=== PATIENT | male | born 1980 | race Caucasian/White ===

== ENCOUNTER 2025-06-23 22:39 | Emergency (ER) | payer BC, SELFPAY ==
[2025-06-23 22:50] VITALS: BP 167/93
[2025-06-23 23:09] LABS: Hematocrit 39.8 % (39.0-52.0); Hemoglobin 13.2 g/dL (13.0-18.0); Mean Corp Hgb Conc. 33.2 g/dL (33.0-37.0); Mean Corpuscular Volume 91.3 fL (80.0-94.0); Nucleated Red Blood Cells % 0 % (-); Platelet Count 293 10^3/uL (130-400); Red Cell Dist. Width 12.0 % (11.5-14.5)
[2025-06-23 23:12] LABS: INR 0.95; PT 13.0 Sec (11.4-14.6)
[2025-06-23 23:13] LABS: APTT 27.4 Sec (23.4-35.0)
[2025-06-23 23:23] LABS: ALT (SGPT) 33 U/L (0-50); AST (SGOT) 31 U/L (17-59); Albumin 4.3 g/dl (3.5-5.0); Alkaline Phosphatase 47 U/L (38-126); Blood Urea Nitrogen 19 mg/dl (9-20); Calcium 9.3 mg/dl (8.4-10.2); Carbon Dioxide 26 mmol/L (22-30); Chloride 109 mmol/L (98-107); Glucose 105 mg/dl (70-99); Potassium 4.3 mmol/L (3.5-5.1); Sodium 142 mmol/L (135-145); Total Protein 6.7 g/dl (6.3-8.2); eGFR > 60.00
[2025-06-23 23:27] LABS: Troponin I < 0.012 ng/ml
[2025-06-24 00:09] VITALS: BP 162/66
[2025-06-24 00:15] VITALS: BMI 29.2
[2025-06-24 00:20] VITALS: BP 162/66
[2025-06-24 01:00] VITALS: BP 138/69
[2025-06-24 02:00] VITALS: BP 139/71
--- NOTE | 2025-06-24 02:30 | DOWNTIME ---
There was a [employer] Downtime on 06/24/2025 from 0100 to 06/24/2025 at 0215. Downtime documentation of patient's care, including medication administrations, has been reconciled in the electronic record per guidelines. Refer to the
patient's paper chart under the miscellaneous tab to see printed paper medication records and downtime forms.
[2025-06-24 03:12] VITALS: BP 137/71
--- NOTE | 2025-06-24 03:53 | ED.GENMED ---
History of Present Illness
General
Chief Complaint: Chest Pain
Source: patient
Exam Limitations: none
Time Seen by Provider: 06/24/25 03:00
Nursing documentation reviewed up to this point in time: agreed with
History of Present Illness
History of Present Illness:
Note:
CHIEF COMPLAINT(S)
Left shoulder pain radiating to the chest.
HISTORY OF PRESENT ILLNESS
The patient is a 44-year-old male with pmh of bipolar disorder takes no medications who presents with left shoulder pain radiating to the center of the chest, which started two days ago. He does not recall any specific event or injury that initiated
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 He describes the pain as persisting and mentions it sometimes wakes him up at night. The pain has been partially alleviated by taking
Xanax and Advil. The patient reports experiencing slight shortness of breath with the discomfort. He denies any family history of heart disease and reports that he smokes tobacco products but not daily. Upon physical exertion or movement of the
shoulder, he feels no notable increase in pain. A prior test revealed undetectable troponin levels, suggesting no acute cardiac injury. The patient is generally healthy and reports visiting a family doctor annually.
SOCIAL DETERMINANTS AFFECTING HEALTH
The patient reports smoking tobacco products but not on a daily basis.
REVIEW OF SYSTEMS
- Cardiovascular: Complains of left shoulder pain radiating to the chest with no known history of heart disease.
- Respiratory: Experiences slight shortness of breath.
- Musculoskeletal: Reports left shoulder pain which hinders rest.
PHYSICAL EXAM
General: Alert, no acute distress.
Skin: Warm, dry.
Head: Normocephalic, atraumatic.
Neck: Supple, trachea midline.
Eye Ears, Nose, Mouth and Throat: Oral mucosa moist.
Cardiovascular: RRR. no murmurs. Normal peripheral perfusion, No edema.
Respiratory: Respirations are non-labored. No wheezes, rales, or rhonchi.
Gastrointestinal : Abdomen nondistended no tenderness to palpation.
Back: Normal range of motion, Normal alignment.
Musculoskeletal: Normal ROM, normal strength except for slight tenderness reported on the palpation of the lateral left pectoralis
Neurological: Alert and oriented to person, place, time, and situation, No focal neurological deficit observed.
Psychiatric: Cooperative, appropriate mood & affect.
PLAN
1. Repeat troponin test and electrocardiogram to further assess for potential cardiac issues.
2. Perform chest X-ray to rule out pneumothorax.
3. Order a D-dimer test to evaluate for potential blood clot in the lungs.
4. Start intravenous access for blood draws and administer a nonsteroidal anti-inflammatory drug (NSAID) to assess response.
5. Continue monitoring the patient for any changes in symptoms or vital signs.
DIFFERENTIAL DIAGNOSIS
The Differential Diagnosis includes, in no particular order and is not limited to:
1. Musculoskeletal chest pain
2. Myocardial infarction
3. Angina pectoris
4. Pulmonary embolism
5. Pneumothorax
6. Gastroesophageal reflux disease (GERD)
7. Costochondritis
8. Anxiety-related chest pain
9. Peptic ulcer disease
10. Aortic dissection
Disposition:
SUMMARY OF ENCOUNTER
A 44-year-old male presented to the emergency department with left shoulder pain radiating to the chest. The symptoms started two days ago without any specific injury. He works as a contractor and engages in activities that involve lifting heavy
objects and weightlifting. The patient has no personal or family history of cardiac disease. Upon evaluation, he was in no acute distress, and vital signs were stable. Tests conducted included two troponin tests that were undetectable, a normal
D-dimer, and a non-ischemic EKG. The pain was relieved at the time of discharge.
ASSESSMENT
Suspected pectoralis muscle strain.
PLAN
Follow up with the primary care provider. Discussed strict return precautions with the patient.
PATIENT EDUCATION AND COUNSELING
The patient was advised on recognizing signs warranting immediate medical attention, such as worsening pain, shortness of breath, or any new symptoms.
FOLLOW-UP INSTRUCTIONS
The patient will follow up with the primary care provider.
MEDICAL DECISION MAKING
-Complexity of Data Reviewed: Chronic conditions affecting care - Bipolar disorder. Differential diagnosis included: Musculoskeletal chest pain, Myocardial infarction, Angina pectoris, Pulmonary embolism, Pneumothorax, Gastroesophageal reflux
disease (GERD), Costochondritis, Anxiety-related chest pain, Peptic ulcer disease, Aortic dissection.
-Data:
Category 1: Tests and documents reviewed included two troponin tests and a D-dimer test. EKG was independently interpreted as non-ischemic.
-Risk: Consideration of Admission/Observation: Escalation of care including admission/observation was considered given the complexity and risk of the patients presenting complaint. However, ultimately, the patient was deemed safe for outpatient
management with close follow-up. Reasoning: Work-up reassuring, does not reveal any acute life/organ-threatening processes, patients symptoms well controlled upon reevaluation, reexamination is reassuring, vitals are stable, patient agreeable with
discharge, reliable for follow-up.
DIAGNOSIS
Pectoralis muscle strain (ICD-10: M62.830).
Review of Systems
Review of Systems
All Other Systems: ROS reviewed and negative except as documented in HPI and ROS
Phy Exam
Physical Exam
Physical Exam:
see hpi
Scores
Heart Score for Chest Pain Patients
STEMI patient?: No
History: Slightly or Non-Suspicious
ECG: Significant ST-Depression
Age: >45 - <65 years
Risk Factors: 1 or 2 Risk Factors
Troponin: </= Normal Limit
Heart Score for Chest Pain Patients: 4
Heart Score Risk: 20.3% MACE over next 6 weeks
Course
Orders/Labs/Results
Orders:
Orders
06/23/25 22:45
Electrocardiogram (*1) Urgent
Reason for Study: Chest Pain
EKG- Treatment ONCE
06/23/25 22:55
Complete Blood Count/With Diff Urgent
Comprehensive Metabolic Panel Urgent
PTT Urgent
Prothrombin Time Urgent
Troponin I Urgent
06/24/25 02:42
CR Chest - 2 Views Urgent
Comment:
Reason For Exam: chest pain
06/24/25 03:53
Ketorolac [Toradol] 15 mg IV NOW STA
06/24/25 03:54
Electrocardiogram (*1) Urgent
Reason for Study: Chest Pain
EKG- Treatment ONCE
06/24/25 04:09
D-Dimer Urgent
Troponin I Urgent
Abnormal Lab Results
06/23/25
22:55
RBC 4.36 L 10^6/uL
(4.70-6.10)
Chloride 109 H mmol/L
(98-107)
Glucose 105 H mg/dl
(70-99)
06/23/25 22:55
06/23/25 22:55
Vital Signs
Initial and Last Documented VS:
Initial Vital Signs
Temp Pulse Resp BP Pulse Ox
98.2 F 62 18 167/93 98
06/23/25 22:50 06/23/25 22:50 06/23/25 22:50 06/23/25 22:50 06/23/25 22:50
Last Documented Vital Signs
Temp Pulse Resp BP Pulse Ox
98.6 F 56 16 110/78 96
06/24/25 00:20 06/24/25 05:53 06/24/25 05:00 06/24/25 05:53 06/24/25 05:15
*Pulse Oximetry
SaO2: 98
Oxygen Mode of Delivery: Room air
Patient hypoxic: no
*Critical Care Note
Total Time (30-74mins, 75-104mins- exclusive of procedures): Not Applicable
ED Attending Note
-
Portions of this chart may have been created with voice recognition software.� Occasional wrong word or��sound alike� substitutions may have occurred due to the inherent limitations of voice recognition software.
Discharge Plan
Departure
Patient Disposition: Home (Routine Discharge)
Date of Disposition: 06/24/25
Time of Disposition: 05:48
Patient with high blood pressure during this ER visit?: Yes
Condition: Good
Discharge Problem:
Chest pain, Left shoulder pain
Instructions: Shoulder pain, BLOOD PRESSURE, Chest Pain
Referrals:
Jeff Baer DO [Family Provider, Family Practice]
Activity Restrictions/Additional Instructions:
Please continue to monitor your symptoms. You can take ibuprofen and Tylenol as needed for pain. Please follow-up with primary care provider in 1 week for reassessment and general physical exam. PLEASE RETURN IF YOUR SYMPTOMS, SHORTNESS OF
BREATH, DIZZINESS, LIGHTHEADEDNESS, FAINTING SPELLS, JAW PAIN, OR ANY OTHER SIGNS OR SYMPTOMS WORRISOME TO YOU.
Interventions
Interventions:
*Risk Screen - Suicide Last Done: 06/23/25 22:49
*General Assessment Last Done: 06/23/25 22:49
*Neglect/Abuse Screening Last Done: 06/23/25 22:49
*ED- Fall Risk Assessment Last Done: 06/24/25 00:14
*ED COVID-19 Vaccine History Last Done: 06/24/25 00:14
*ED Influenza Vaccine History Last Done: 06/24/25 00:14
*Nursing Disposition Last Done: 06/24/25 06:00
ED- Cardiac Assessment Last Done: 06/24/25 00:16
Discharge Date and Time
Discharge Date/Time: 06/24/25 06:02
Print Language: [place]
[2025-06-24] MEDS: TORADOL 15 MG IV (04:09)
[2025-06-24 04:39] LABS: D-Dimer 0.28 ug/mlFEU (0.00-0.50)
[2025-06-24 04:56] LABS: Troponin I < 0.012 ng/ml
[2025-06-24 05:53] VITALS: BP 110/78
== END 2025-06-24 06:02 | disposition home or self-care (01) ==
LOC: EMR 22:39
PROVIDERS: Emergency Medicine; Physician Assistant; EMERGENCY PHYSICIAN Student in an Organized Health Care Education/Training Program; FAMILY PHYSICIAN Family Medicine
DX: R07.9 Chest pain, unspecified (principal); M25.512 Pain in left shoulder; R03.0 Elevated blood-pressure reading, without diagnosis of hypertension; F31.9 Bipolar disorder, unspecified; F17.200 Nicotine dependence, unspecified, uncomplicated
CPT/HCPCS: 99284; 96374; 71046; 80053; 84484; 85025; 85379; 85610; 85730; 93005